=== PATIENT | male | born 1955 | race Caucasian/White ===

== ENCOUNTER 2019-09-04 09:00 | Emergency (ER) | payer OTHER ==
[~2019-09-04] VITALS: Ht 170.2 cm; Wt 89.8 kg
[2019-09-04] MEDS ORDERED: FORTAMET500 MG PO (09:04)
[2019-09-04] MEDS ORDERED: GABAPENTIN400 MG PO (09:05)
[2019-09-04] MEDS ORDERED: GLIPIZIDE XL10 MG PO (09:06)
[2019-09-04] MEDS ORDERED: ZESTRIL5 MG PO (09:07)
[2019-09-04] MEDS ORDERED: PROBIOTIC1 EAC6 PO (09:08)
[2019-09-04] MEDS ORDERED: AMOX1TAB5 (09:08)
[2019-09-04] MEDS ORDERED: XANAX0.25 MG PO (11:58)
== END 2019-09-04 13:50 | disposition home or self-care (01) ==
LOC: ER 09:00
DX: R06.02 Shortness of breath (principal); Z03.818 Encounter for observation for suspected exposure to other biological agents ruled out; F41.8 Other specified anxiety disorders

== ENCOUNTER 2023-04-30 09:49 | Emergency (ER) | payer OTHER ==
[~2023-04-30] VITALS: Ht 170.2 cm; Wt 96.2 kg
[~2023-04-30 09:49] MED LIST: AMOX1TAB5; FORTAMET500 MG PO; GABAPENTIN400 MG PO; GLIPIZIDE XL10 MG PO; PROBIOTIC1 EAC6 PO; XANAX0.25 MG PO; ZESTRIL5 MG PO
[2023-04-30] MEDS ORDERED: JANUMET 50-1,01 EACH (10:53)
[2023-04-30] MEDS ORDERED: ACTOS15 MG (10:54)
[2023-04-30] MEDS ORDERED: PENTOXIFYLLINE400 MG (10:55)
[2023-04-30 13:04] LABS: HEMATOCRIT 48.3 % (39.0-48.0); HEMOGLOBIN 16.2 g/dL (13-16.00); MEAN CORPUSCULAR HEMOGLOBIN 29.8 pg (27.00-32.0); MEAN CORPUSCULAR HGB CONC 33.5 g/dl (32.0-36.0); PLATELET COUNT 211 K/uL (150-450); RED BLOOD COUNT 5.43 M/uL (4.00-6.00); RED CELL DISTRIBUTION WIDTH 14.2 % (11.5-14.5)
== END 2023-04-30 15:55 | disposition home or self-care (01) ==
LOC: ER 09:50
DX: J10.1 Influenza due to other identified influenza virus with other respiratory manifestations (principal); Z20.822 Contact with and (suspected) exposure to COVID-19